=== PATIENT | male | born 1985 | race Caucasian/White ===

== ENCOUNTER 2016-12-02 09:41 | Emergency (ER) | payer SELFPAY ==
[~2016-12-02] VITALS: Ht 177.8 cm; Wt 70.3 kg
[2016-12-02 11:37] VITALS: BP 127/87
[2016-12-02] MEDS ORDERED: KETOROLAC TROMETH 60MG/2ML VIAL IM ONE (12:30)
== END 2016-12-02 12:32 | disposition home or self-care (01) ==
LOC: ER 09:41
DX: S29.011A Strain of muscle and tendon of front wall of thorax, initial encounter (principal); S29.012A Strain of muscle and tendon of back wall of thorax, initial encounter; W21.02XA Struck by soccer ball, initial encounter; Y93.66 Activity, soccer; Y99.8 Other external cause status; Y92.89 Other specified places as the place of occurrence of the external cause
CPT/HCPCS: 71101; 96372; 99284; J1885

== ENCOUNTER 2017-01-07 22:59 | Emergency (ER) | payer SELFPAY ==
[~2017-01-07] VITALS: Ht 177.8 cm; Wt 68.0 kg
[2017-01-08] MEDS ORDERED: NALOXONE HCL 1MG/ML 2ML SYRINGE ONE (02:29)
[2017-01-08] MEDS ORDERED: SODIUM CHLORIDE 0.9% 1,000 ML IV ONE ×2 (02:45→07:02)
[2017-01-08] MEDS ORDERED: NALOXONE HCL 1MG/ML 2ML SYRINGE IV ONE (02:45)
[2017-01-08 03:22] LABS: Basophils # (auto) 0 uL; Basophils % (auto) 0.7 % (0.0-2.0); Eosinophils # (auto) 0 uL; Eosinophils % (auto) 0.9 % (0.0-7.0); Hematocrit 42.1 % (41.0-53.0); Hemoglobin 14.5 g/dL (13.5-17.5); Lymphocytes # (auto) 1.3 uL; Lymphocytes % (auto) 24.4 % (10.0-50.0); Mean Corpuscular Hemoglobin 33.4 pg (28.0-32.0); Mean Corpuscular Hgb Conc. 34.5 g/dL (32.0-36.0); Mean Corpuscular Volume 96.8 fL (80.0-100.0); Mean Platelet Volume 8.3 fL (7.4-10.4); Monocytes # (auto) 0.6 uL; Monocytes % (auto) 10.4 % (0.0-12.0); Neutrophils # (auto) 3.5 uL; Neutrophils % (auto) 63.6 % (37.0-80.0); Platelet Count (auto) 253 10^3/uL (140-450); Red Cell Distribution Width 13.4 % (11.6-16.0); White Blood Cell 5.4 10^3/uL (4.4-10.8)
[2017-01-08 03:27] LABS: Albumin 3.6 g/dL (3.4-5.0); BUN/Creatinine Ratio 26.4; Calcium 8.4 mg/dL (8.5-10.1); Potassium 3.3 mmol/L (3.5-5.1)
[2017-01-08 03:30] LABS: Bilirubin, Total 0.2 mg/dL (0.2-1.0); Total Protein 7.5 g/dL (6.4-8.2)
[2017-01-08] MEDS ORDERED: POTASSIUM CHL 10% (20 MEQ/15ML) ORAL SOLN PO ONE (07:15)
[2017-01-08 09:04] VITALS: BP 111/79
== END 2017-01-08 14:35 | disposition home or self-care (01) ==
LOC: ER 23:05
DX: T40.1X1A Poisoning by heroin, accidental (unintentional), initial encounter (principal); R41.82 Altered mental status, unspecified; E87.6 Hypokalemia; Y92.9 Unspecified place or not applicable
CPT/HCPCS: 36415; 71020; 80053; 85025; 93005; 96361; 96374; 99285; J2310; J7030